=== PATIENT | male | born 1980 | race African-American/Black ===

== ENCOUNTER 2020-10-23 07:00 | Emergency (ER) | payer BC ==
[~2020-10-23] VITALS: Ht 180.3 cm; Wt 101.0 kg
--- NOTE | 2020-10-23 07:28 | PHYS DOC ---
Past History Past Surgical History: No Surgical History Adult General Chief Complaint Chief Complaint: Palpitations HPI HPI Patient is a 39-year-old male with a past medical history significant for hypertension who presents with a chief complaint of racing heart/palpitations at nighttime. States he switched from losartan to amlodipine about a month ago because he noticed at nighttime when he goes to bed and feels like his heart is beating faster than usual and thought it was the blood pressure medicine so switched. States he does not notice this in the daytime and does not know if there is a component of anxiety or not. Denies any recent traumas, travels, illnesses, fevers, chest pain, shortness of breath, abdominal pain, nausea, vomiting, dysuria, hematuria, blood in the stool or diarrhea. Denies any Covid/flu/cold symptoms or known ill contacts. States he is taking all his medications as prescribed. Denies any dyspnea on exertion, orthopnea, PND or edema. States he has made his primary care physician aware of these symptoms and that is why he was changed to the amlodipine Review of Systems Review of Systems Review of systems otherwise unremarkable except noted in HPI Physical Exam Physical Exam Constitutional: Well developed, well nourished, no acute distress, non-toxic appearance. [] HENT: Normocephalic, atraumatic, oropharynx moist, no oral exudates, nose normal. [] Eyes: conjunctiva normal, no discharge. [] Neck: Normal range of motion, no tenderness, supple, no stridor. [] Cardiovascular:Heart rate regular rhythm, no murmur [] Lungs & Thorax: Bilateral breath sounds clear to auscultation [] Abdomen: soft, no tenderness, no masses, no pulsatile masses. [] Skin: Warm, dry, no erythema, no rash. [] Extremities: No tenderness, ROM intact, no edema. [] Neurologic: Alert and oriented X 3, no focal deficits noted. [] Psychologic: Affect normal, judgement normal, mood normal. [] Current Patient Data Vital Signs Vital Signs Date Time Temp Pulse Resp B/P (MAP) Pulse Ox O2 Delivery O2 Flow Rate FiO2 10/23/20 07:10 98.4 73 26 131/86 98 Room Air EKG EKG [] Radiology/Procedures Radiology/Procedures [] CHEST 1V 10/23/2020 7:26 AM INDICATION: Palpitations COMPARISON: None available TECHNIQUE: Portable frontal view of the chest is provided. FINDINGS: The cardiomediastinal silhouette is within normal limits. Lungs are clear. There are no significant pleural effusions. There is no pulmonary vascular congestion. No pneumothorax. No suspicious osseous abnormality. IMPRESSION: There is no acute cardiopulmonary process. Electronically signed by: Aura Brunner MD (10/23/2020 7:37 AM) [id number] Heart Score C/O Chest Pain: No Risk Factors: Risk Factors: DM, Current or recent (<one month) smoker, HTN, HLP, family history of CAD, obesity. Risk Scores: Risk Factors: DM, Current or recent (<one month) smoker, HTN, HLP, family history of CAD, obesity. Course & Med Decision Making Course & Med Decision Making Patient is a 39-year-old male who presents with palpitations Vital signs not concerning. Physical exam noted above. EKG noted above with no STEMI. [] Dragon Disclaimer Dragon Disclaimer This electronic medical record was generated, in whole or in part, using a voice recognition dictation system. Departure Departure: Impression: Primary Impression: Palpitations Disposition: 01 HOME / SELF CARE / HOMELESS Condition: GOOD Referrals: HUBER OCONNOR (PCP) Patient Instructions: Palpitations Additional Instructions: Thank you for coming into the emergency department today and allowing us to take care of you. Please read all the attached information about to go back over things we discussed. It is very important you take your medications as prescribed and if you have any concerns, call your primary care physician to set up an appointment. You should call your primary care physician first thing in the morning to update on your ED visit and set up a follow-up as soon as possible. Please come back to the emergency department immediately with new or concerning symptoms as discussed. BEN CLEMENTS MD Oct 23, 2020 07:27
--- NOTE | 2020-10-23 07:40 | RAD ---
XR CHEST 1V 10/23/2020 7:26 AM INDICATION: Palpitations COMPARISON: None available TECHNIQUE: Portable frontal view of the chest is provided. FINDINGS: The cardiomediastinal silhouette is within normal limits. Lungs are clear. There are no significant pleural effusions. There is no pulmonary vascular congestion. No pneumothora x. No suspicious osseous abnormality. IMPRESSION: There is no acute cardiopulmonary process. Electronically signed by: Aura Brunner MD (10/23/2020 7:37 AM) [id number]
[2020-10-23 07:50] VITALS: BP 109/56
[2020-10-23 07:59] LABS: BASO # 0.1 x10^3/uL (0.0-0.2); BASO % 1 % (0-3); EOS % 0 % (0-3); HEMATOCRIT 41.5 % (39.0-53.0); HEMOGLOBIN 13.9 g/dL (13.0-17.5); LYMPH # 1.6 x10^3/uL (1.0-4.8); LYMPH % 16 % (24-48); MEAN CORPUSCULAR HEMOGLOBIN 30 pg (25-35); MEAN CORPUSCULAR HGB CONC 33 g/dL (31-37); MEAN CORPUSCULAR VOLUME 90 fL (79-100); MONO # 0.5 x10^3/uL (0.0-1.1); MONO % 5 % (0-9); NEUT # 7.7 x10^3uL (1.8-7.7); NEUT % 78 % (31-73); PLATELET COUNT 300 x10^3/uL (140-400); RED CELL DISTRIBUTION WIDTH 14.7 % (11.5-14.5); WHITE BLOOD COUNT 9.8 x10^3/uL (4.0-11.0)
[2020-10-23 08:02] LABS: CALCIUM 8.8 mg/dL (8.5-10.1); CREATININE 1.1 mg/dL (0.7-1.3); GFR 89.3; MAGNESIUM 1.7 mg/dL (1.8-2.4); POTASSIUM 3.5 mmol/L (3.5-5.1)
[2020-10-23] MEDS ORDERED: MAGNESIUM OXIDE 400 MG TABLET PO ONE (08:30)
--- NOTE | 2020-10-24 06:25 | EKG ---
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
== END 2020-10-23 08:36 | disposition home or self-care (01) ==
LOC: ER 07:00
DX: R00.2 Palpitations (principal); I10 Essential (primary) hypertension
CPT/HCPCS: 36415; 71045; 80048; 83735; 84484; 85025; 93005; 99285